=== PATIENT | female | born 1970 | race Hispanic/Latino ===

== ENCOUNTER → 2020-09-04 | Outpatient (CLI) | payer BC ==
[~2020-09-04] MED LIST: AMLODIPINE BESYL5 MG PO; BRISDELLE PO; ESTRADIOL1 MG PO; LOSARTAN POTASS50 MG PO; PRAVASTATIN SOD10 MG PO
== END ==
LOC: MRI 08:47
PROVIDERS: ATTEND Specialist
DX: M24.9 Joint derangement, unspecified (principal)